=== PATIENT | female | born 1960 | race Caucasian/White ===

== ENCOUNTER 2017-09-14 14:25 | Emergency (ER) | payer MEDICAID, OTHER ==
[~2017-09-14] VITALS: Ht 170.2 cm; Wt 82.9 kg
[2017-09-14] MEDS ORDERED: ONDANSETRON 2MG/ML, 2ML IVPush ONE (15:00)
[2017-09-14] MEDS ORDERED: SODIUM CHLORIDE 0.9% 1,000ML IVBOLUS ONE (15:00)
[2017-09-14 15:31] LABS: BASOPHILS # (AUTO) 0.02 x10^3/uL (0-0.1); BASOPHILS % (AUTO) 0 % (0-1); EOSINOPHILS # (AUTO) 0.02 x10^3/uL (0-0.4); EOSINOPHILS % (AUTO) 0 % (1-7); LYMPHOCYTES # (AUTO) 2.41 x10^3/uL (1-3.4); LYMPHOCYTES % (AUTO) 44 % (22-44); MD NO; MEAN CORPUSCULAR HEMOGLOBIN 34.1 pg (27.0-34.8); MEAN CORPUSCULAR HGB CONC 34.1 g/dL (32.4-35.8); MEAN CORPUSCULAR VOLUME 100.3 fL (80-100); MEAN PLATELET VOLUME 8.4 fL (7.4-10.4); MONOCYTES # (AUTO) 0.25 x10^3/uL (0.2-0.8); MONOCYTES % (AUTO) 5 % (2-9); NEUTROPHILS # (AUTO) 2.76 x10^3/uL (1.8-6.8); NEUTROPHILS % (AUTO) 51 % (42-75); PLATELET COUNT 203 x10^3/uL (130-400); RED BLOOD COUNT 3.52 x10^6/uL (3.82-5.3); RED CELL DISTRIBUTION WIDTH 13.1 % (9.6-15.2)
[2017-09-14 15:39] LABS: ALBUMIN 3.3 g/dL (3.4-5.0); ANION GAP 9 mmol/L (5-15); CALCIUM 7.7 mg/dL (8.5-10.1); CHLORIDE 111 mmol/L (98-107)
[2017-09-14 15:42] LABS: ALANINE AMINOTRANSFERASE 18 U/L (12-78); ALKALINE PHOSPHATASE 64 U/L (45-117); BILIRUBIN,TOTAL 0.2 mg/dL (0.2-1.0); CREATININE 0.64 mg/dL (0.55-1.02)
[2017-09-14] MEDS ORDERED: SODIUM CHLORIDE FLUSH 10ML SYR IVF ONE (16:00)
[2017-09-14 18:00] LABS: MICROSCOPIC AUTO
[2017-09-14 18:04] LABS: CULTURE INDICATED? YES
[2017-09-14] MEDS ORDERED: ONDANSETRON 2MG/ML, 2ML ONE (18:26)
[2017-09-14] MEDS ORDERED: POTASSIUM CHLORIDE 20 MEQ TAB.ER.PRT ONE (18:26)
[2017-09-14 18:31] VITALS: BP 137/72
[2017-09-14] MEDS ORDERED: POTASSIUM CHLORIDE 20 MEQ TAB.ER.PRT PO ONE (19:00)
== END 2017-09-14 20:26 | disposition home or self-care (01) ==
LOC: ED 19:00
DX: B34.9 Viral infection, unspecified (principal); R55 Syncope and collapse; N30.90 Cystitis, unspecified without hematuria; E87.6 Hypokalemia
CPT/HCPCS: 36415; 71046; 80053; 81001; 85025; 87086; 93005; 96361; 96374; 99285; J2405; J7030

== ENCOUNTER 2017-12-30 09:21 | Emergency (ER) | payer MEDICAID ==
[~2017-12-30] VITALS: Ht 170.2 cm; Wt 81.2 kg
[2017-12-30 09:24] VITALS: BP 142/87
[2017-12-30] MEDS ORDERED: IBUPROFEN 200 MG TABLET ONE (09:50)
[2017-12-30] MEDS ORDERED: ONDANSETRON ODT 4 MG ONE (09:50)
[2017-12-30] MEDS ORDERED: ONDANSETRON ODT 4 MG PO ONE (10:00)
[2017-12-30] MEDS ORDERED: IBUPROFEN 200 MG TABLET PO ONE (10:00)
[2017-12-30] MEDS ORDERED: ESTR1TAB17 PO (10:16)
[2017-12-30] MEDS ORDERED: VALA10004 PO (10:17)
[2017-12-30] MEDS ORDERED: LEVO75TA5 PO (10:17)
[2017-12-30] MEDS ORDERED: MOME17SP NAS (10:18)
[2017-12-30] MEDS ORDERED: IBUP-1223 PO (10:18)
== END 2017-12-30 11:51 | disposition home or self-care (01) ==
LOC: ED 09:48
DX: S16.1XXA Strain of muscle, fascia and tendon at neck level, initial encounter (principal); Z88.0 Allergy status to penicillin; V43.52XA Car driver injured in collision with other type car in traffic accident, initial encounter; Y93.89 Activity, other specified; Y92.410 Unspecified street and highway as the place of occurrence of the external cause; Y99.8 Other external cause status
CPT/HCPCS: 72050; 93005; 99284; Q0162

== ENCOUNTER 2019-08-20 13:32 | Emergency (ER) | payer MEDICAID ==
[~2019-08-20] VITALS: Ht 167.6 cm; Wt 71.8 kg
[~2019-08-20 13:32] MED LIST: ESTR1TAB17 PO; IBUP-1223 PO; LEVO75TA5 PO; MOME17SP NAS; VALA10004 PO
[2019-08-20 13:46] VITALS: BP 123/86
--- NOTE | 2019-08-20 14:06 | NUR ---
PT AMBULATORY TO ROOM 6 W/ C/O CRACKED CROWN X 5 DAYS. PT STATES SHE HAD DENTAL APPT TODAY AT 1330 BUT DECIDED TO COME TO ED INSTEAD. ALSO HAS C/O PAINFUL URINATION. PT RESTING ON JOCELYN. MATTHEW.
[2019-08-20 14:28] LABS: MICROSCOPIC NOT IND
[2019-08-20 14:38] LABS: CULTURE INDICATED? NO
== END 2019-08-20 14:48 | disposition home or self-care (01) ==
LOC: ED 14:25
DX: K08.89 Other specified disorders of teeth and supporting structures (principal); R30.0 Dysuria; E03.9 Hypothyroidism, unspecified
CPT/HCPCS: 81003; 99283